=== PATIENT | female | born 1970 | race Caucasian/White ===

== ENCOUNTER → 2016-08-09 | Outpatient (CLI) | payer MEDICARE, MEDICAID | END | disposition home or self-care (01) | LOC: NUE 12:48 | DX: E66.9 Obesity, unspecified (principal); R63.4 Abnormal weight loss; Z71.3 Dietary counseling and surveillance | CPT/HCPCS: 258 ==

== ENCOUNTER 2016-10-07 10:50 | Emergency (ER) | payer MEDICARE, MEDICAID ==
--- NOTE | 2016-10-15 18:05 | ER ---
ADMIT: 10/07/2016 RM/LOC: ER [facility] MR#: [id number] [address] [id number] YAN SCHULZ [address] [address] Emergency Room Report SEX: F AGE: 46 : 1970 DATE: 10/07/2016 ADDENDUM: A 46-year-old female, comes in with complaints of abdominal pain. It has been going on since last night. She felt like overall her belly feels firm and has diffuse pain. She does not have any nausea, vomiting, fevers, chills, or change in bowel or bladder function. While in the ER, we did check a CBC, chemistries, and lactic acid, which were all normal. We also did a CT of the abdomen and pelvis, which shows nothing acute. The patient felt better while in the ER but was still symptomatic. She did feel like she could try to go home at this time and return if her symptoms got worse. Otherwise, follow up Dr. Lazaro's office next week. I did attempt to contact Dr. Lazaro, but she was out of the office this afternoon. I spoke to her nurse and made her aware that we would have the patient see next week if she is still symptomatic. DIAGNOSIS: Abdominal pain. Simon Leon MD/ rae JOB #: [id number] CC: Simon Leon MD, Attending Physician Lia Lazaro MD, Family Physician
== END 2016-10-07 13:50 | disposition home or self-care (01) ==
LOC: ER 10:50
DX: R10.84 Generalized abdominal pain (principal); E78.5 Hyperlipidemia, unspecified; F17.210 Nicotine dependence, cigarettes, uncomplicated; E11.9 Type 2 diabetes mellitus without complications; Z88.0 Allergy status to penicillin; Z88.1 Allergy status to other antibiotic agents; Z88.8 Allergy status to other drugs, medicaments and biological substances; Z79.4 Long term (current) use of insulin; Z79.899 Other long term (current) drug therapy; Z98.890 Other specified postprocedural states; Z90.49 Acquired absence of other specified parts of digestive tract; Z90.710 Acquired absence of both cervix and uterus